=== PATIENT | female | born 1945 | race Native Hawaiian/Other Pacific Islander ===

== ENCOUNTER 2016-11-15 09:27 | Outpatient (CLI) | payer OTHER ==
[~2016-11-15 09:27] MED LIST: ALBUTEROL0.083 % IN; ANORO ELLIPTA 61 AER IN; ASPIR-8181 MG PO; CALCIUM CITRATE1 TA2 PO; CARAFATE1 GM PO; CELEXA20 MG PO; FLUT0.05 NAS; FURO20TA67 PO; LIPITOR20 MG PO; LISI5TAB10 PO; LORA10TA3 PO; METOPROLOL25 M1 OR; OMEPRAZOLE20 M1 OR; PERCOCET1 TA3 PO; POTA20TA4 PO; PROAIR HFA IN; SEROQUEL25 MG OR; SM IRON325 MG OR; TEMA15CA19 PO; TIZA4TAB5 PO; XANAX XR1 MG OR
== END 2016-11-15 19:27 | disposition home or self-care (01) ==
LOC: RAD 09:27
DX: M25.562 Pain in left knee (principal); M25.561 Pain in right knee

== ENCOUNTER 2017-01-16 09:13 | Outpatient (CLI) | payer OTHER ==
[2017-01-16 10:28] LABS: PLATELET COUNT 198 K/uL (152-353)
[2017-01-16 11:00] LABS: POTASSIUM 4.5 mmol/L (3.6-5.2)
== END 2017-01-16 10:45 | disposition home or self-care (01) ==
LOC: LABW 09:13
PROVIDERS: Family Medicine
DX: M54.5 Low back pain (principal); J44.9 Chronic obstructive pulmonary disease, unspecified; I10 Essential (primary) hypertension; I25.10 Atherosclerotic heart disease of native coronary artery without angina pectoris; J40 Bronchitis, not specified as acute or chronic; N39.0 Urinary tract infection, site not specified; D64.9 Anemia, unspecified
CPT/HCPCS: 36415; 80053; 80061; 81000; 82043; 82570; 82652; 82728; 83540; 83550; 83735; 84439; 84443; 84550; 85027; 87077; 87086; 87088; 87186

== ENCOUNTER 2017-01-29 13:03 | Outpatient (CLI) | payer OTHER | END 2017-01-29 14:05 | disposition home or self-care (01) | LOC: LAB 13:03 | DX: D64.89 Other specified anemias (principal) | CPT/HCPCS: 82607; 82746 ==

== ENCOUNTER 2017-07-21 09:03 | Outpatient (CLI) | payer OTHER ==
[2017-07-21 09:57] LABS: PLATELET COUNT 179 K/uL (152-353)
[2017-07-21 10:36] LABS: POTASSIUM 4.4 mmol/L (3.6-5.2)
== END 2017-07-21 19:18 | disposition home or self-care (01) ==
LOC: LABW 09:03
PROVIDERS: Family Medicine
DX: R10.84 Generalized abdominal pain (principal); M54.5 Low back pain; E55.9 Vitamin D deficiency, unspecified; I10 Essential (primary) hypertension
CPT/HCPCS: 36415; 74022; 80053; 80061; 82306; 84439; 84443; 85027; 87077; 87086; 87088; 87186

== ENCOUNTER 2017-08-21 12:30 | Outpatient (CLI) | payer OTHER | END 2017-08-21 19:21 | disposition home or self-care (01) | LOC: RAD 12:30 | DX: M17.12 Unilateral primary osteoarthritis, left knee (principal) ==

== ENCOUNTER 2018-03-23 11:15 | Outpatient (CLI) | payer OTHER | END 2018-03-23 19:20 | disposition home or self-care (01) | LOC: LABW 11:15 | DX: N39.0 Urinary tract infection, site not specified (principal) | CPT/HCPCS: 87077; 87086; 87088; 87185; 87186 ==

== ENCOUNTER 2018-04-02 10:44 | Outpatient (CLI) | payer OTHER | END 2018-04-02 19:41 | disposition home or self-care (01) | LOC: MAMMO 10:44 | DX: Z12.31 Encounter for screening mammogram for malignant neoplasm of breast (principal) ==

== ENCOUNTER 2018-04-21 08:42 | Outpatient (CLI) | payer OTHER ==
[2018-04-21 09:09] LABS: PLATELET COUNT 253 K/uL (152-353)
[2018-04-21 09:28] LABS: POTASSIUM 4.4 mmol/L (3.6-5.2)
== END 2018-04-21 21:29 | disposition home or self-care (01) ==
LOC: LABW 08:42
PROVIDERS: Family Medicine
DX: Z00.00 Encounter for general adult medical examination without abnormal findings (principal); Z00.01 Encounter for general adult medical examination with abnormal findings; E55.9 Vitamin D deficiency, unspecified; K21.9 Gastro-esophageal reflux disease without esophagitis; M79.605 Pain in left leg; Z13.6 Encounter for screening for cardiovascular disorders; R53.82 Chronic fatigue, unspecified; E11.9 Type 2 diabetes mellitus without complications
CPT/HCPCS: 36415; 80053; 80061; 80074; 81000; 82306; 83036; 83735; 84439; 84443; 84550; 85027

== ENCOUNTER 2018-04-27 08:58 | Outpatient (CLI) | payer OTHER | END 2018-04-27 19:42 | disposition home or self-care (01) | LOC: RAD 08:58 | DX: Z13.820 Encounter for screening for osteoporosis (principal) ==

== ENCOUNTER 2018-10-27 12:54 | Outpatient (CLI) | payer OTHER ==
[~2018-10-27] VITALS: Ht 165.1 cm; Wt 59.0 kg
[2018-10-27 13:05] VITALS: BP 110/59; TEMP 98.6
== END 2018-10-27 19:25 | disposition home or self-care (01) ==
LOC: INF 12:54 → RAD 12:54 → INF 19:25
DX: N39.0 Urinary tract infection, site not specified (principal); R10.84 Generalized abdominal pain
CPT/HCPCS: 96372; J0696

== ENCOUNTER 2018-10-28 12:34 | Outpatient (CLI) | payer OTHER ==
[~2018-10-28] VITALS: Ht 165.1 cm; Wt 59.0 kg
[2018-10-28 13:00] VITALS: BP 93/52; TEMP 97.9
== END 2018-10-28 20:07 | disposition home or self-care (01) ==
LOC: INF 12:34
DX: N39.0 Urinary tract infection, site not specified (principal)
CPT/HCPCS: 96372

== ENCOUNTER 2018-10-29 11:32 | Outpatient (CLI) | payer OTHER ==
[~2018-10-29] VITALS: Ht 167.6 cm; Wt 87.1 kg
[2018-10-29 12:30] VITALS: BP 107/66; TEMP 98.3
== END 2018-10-29 13:00 | disposition home or self-care (01) ==
LOC: INF 11:32
DX: N39.0 Urinary tract infection, site not specified (principal)
CPT/HCPCS: 87088; 96372

== ENCOUNTER 2019-01-05 11:19 | Outpatient (CLI) | payer OTHER ==
[~2019-01-05 11:19] MED LIST changes: -SEROQUEL25 MG OR; +SEROQUEL25 MG PO
[2019-01-05 12:09] LABS: POTASSIUM 4.9 mmol/L (3.6-5.2)
[2019-01-05 12:13] LABS: PLATELET COUNT 403 K/uL (152-353)
[2019-01-05] MEDS ORDERED: LISI10TA11 PO (23:53)
[2019-01-05] MEDS ORDERED: XANAX XR0.5 MG PO (23:55)
[2019-01-05] MEDS ORDERED: LIPITOR40 MG PO (23:56)
[2019-01-05] MEDS ORDERED: FURO40TA93 PO (23:58)
[2019-01-06] MEDS ORDERED: VITAMIN D32000 UNI1 PO (00:07)
[2019-01-06] MEDS ORDERED: BUPR150T PO (00:08)
[2019-01-06] MEDS ORDERED: PROMETHAZINE HY25 MG PO (00:09)
[2019-01-06] MEDS ORDERED: METF500T PO (00:10)
== END 2019-01-05 23:45 | disposition home or self-care (01) ==
LOC: RAD 11:19
PROVIDERS: Family Medicine
DX: D64.89 Other specified anemias (principal); R05 Cough; J40 Bronchitis, not specified as acute or chronic; J44.9 Chronic obstructive pulmonary disease, unspecified; D64.9 Anemia, unspecified; Z79.899 Other long term (current) drug therapy
CPT/HCPCS: 80053; 83540; 83550; 85027; 87088

== ENCOUNTER 2019-01-05 18:47 | Inpatient (IN) | payer OTHER ==
[~2019-01-05] VITALS: Ht 167.6 cm; Wt 83.0 kg
[2019-01-05 20:14] VITALS: BP 132/101; TEMP 97.7; Ht 167.6 cm; Wt 83.0 kg
[2019-01-05 20:33] LABS: PLATELET COUNT 389 K/uL (152-353)
[2019-01-05 21:04] VITALS: BP 132/101; TEMP 97.7
[2019-01-05] MEDS ORDERED: LISI10TA11 PO (23:53)
[2019-01-05] MEDS ORDERED: XANAX XR0.5 MG PO (23:55)
[2019-01-05] MEDS ORDERED: LIPITOR40 MG PO (23:56)
[2019-01-05] MEDS ORDERED: FURO40TA93 PO (23:58)
[2019-01-06] VITALS: BP 95/51; TEMP 97.6
[2019-01-06] MEDS ORDERED: VITAMIN D32000 UNI1 PO (00:07)
[2019-01-06] MEDS ORDERED: BUPR150T PO (00:08)
[2019-01-06] MEDS ORDERED: PROMETHAZINE HY25 MG PO (00:09)
[2019-01-06] MEDS ORDERED: METF500T PO (00:10)
[2019-01-06 04:00] VITALS: BP 115/58; TEMP 97.9
[2019-01-06 08:00] VITALS: BP 131/52; TEMP 98.1
[2019-01-06 12:00] VITALS: BP 144/66; TEMP 97.5
[2019-01-06 13:13] LABS: PLATELET COUNT 342 K/uL (152-353)
[2019-01-06 16:00] VITALS: BP 114/59; TEMP 98.7
[2019-01-06 20:00] VITALS: BP 115/59; TEMP 98.3
[2019-01-07] VITALS: BP 102/75; TEMP 98.4
[2019-01-07 04:00] VITALS: BP 111/49; TEMP 98.3
[2019-01-07 08:00] VITALS: BP 115/53; TEMP 97.9
[2019-01-07 12:00] VITALS: BP 130/65; TEMP 98.1
== END 2019-01-07 16:20 | disposition home or self-care (01) | DRG 190 ==
LOC: MED/SURG 18:47
PROVIDERS: ADMIT Family Medicine
DX: J44.0 Chronic obstructive pulmonary disease with (acute) lower respiratory infection (principal); J18.8 Other pneumonia, unspecified organism; Z72.0 Tobacco use; D64.89 Other specified anemias; I10 Essential (primary) hypertension; I25.10 Atherosclerotic heart disease of native coronary artery without angina pectoris; M79.7 Fibromyalgia; N28.89 Other specified disorders of kidney and ureter
CPT/HCPCS: 36415; 80053; 85027; 87040; 93005; 94640; 94644; 94645; 94664; 94668; 94760; J1956; J1650; Q9963

== ENCOUNTER 2019-04-02 08:29 | Outpatient (CLI) | payer OTHER ==
[~2019-04-02 08:29] MED LIST changes: +BUPR150T PO; +FURO40TA93 PO; +LIPITOR40 MG PO; +LISI10TA11 PO; +METF500T PO; +PROMETHAZINE HY25 MG PO; +VITAMIN D32000 UNI1 PO; +XANAX XR0.5 MG PO
== END 2019-04-02 21:52 | disposition home or self-care (01) ==
LOC: LABW 08:29
PROVIDERS: Nurse Practitioner Adult Health
DX: I25.10 Atherosclerotic heart disease of native coronary artery without angina pectoris (principal); E78.2 Mixed hyperlipidemia; Z79.899 Other long term (current) drug therapy
CPT/HCPCS: 36415; 80061; 80076

== ENCOUNTER 2019-06-22 09:18 | Outpatient (CLI) | payer OTHER | END 2019-06-22 19:42 | disposition home or self-care (01) | LOC: RAD 09:18 | DX: M54.89 Other dorsalgia (principal); M54.30 Sciatica, unspecified side; M79.7 Fibromyalgia; G89.4 Chronic pain syndrome; F41.8 Other specified anxiety disorders; G47.09 Other insomnia; E11.9 Type 2 diabetes mellitus without complications; I10 Essential (primary) hypertension; E78.00 Pure hypercholesterolemia, unspecified; I73.89 Other specified peripheral vascular diseases ==

== ENCOUNTER 2019-11-22 12:19 | Outpatient (CLI) | payer OTHER | END 2019-11-22 22:06 | disposition home or self-care (01) | LOC: LAB 12:19 | DX: G89.4 Chronic pain syndrome (principal); F41.9 Anxiety disorder, unspecified; R05 Cough; J44.9 Chronic obstructive pulmonary disease, unspecified | CPT/HCPCS: 87635; U0002 ==

== ENCOUNTER 2020-08-17 09:32 | Outpatient (CLI) | payer OTHER | END 2020-08-17 21:44 | disposition home or self-care (01) | LOC: RAD 09:32 | PROVIDERS: ATTEND Family Medicine | DX: M54.89 Other dorsalgia (principal) ==

== ENCOUNTER 2020-08-31 08:15 | Outpatient (CLI) | payer OTHER | END 2020-08-31 19:30 | disposition home or self-care (01) | LOC: LABW 08:15 | PROVIDERS: ATTEND Nurse Practitioner | DX: E78.49 Other hyperlipidemia (principal); I25.10 Atherosclerotic heart disease of native coronary artery without angina pectoris; Z79.899 Other long term (current) drug therapy | CPT/HCPCS: 36415; 80061; 80076 ==

== ENCOUNTER 2021-01-01 10:28 | Observation (INO) | payer OTHER ==
[~2021-01-01] VITALS: Ht 170.2 cm; Wt 73.2 kg
[2021-01-01 12:00] LABS: PLATELET COUNT 240 K/uL (152-353)
[2021-01-01 12:20] LABS: POTASSIUM 5.1 mmol/L (3.6-5.2); SODIUM 136 mmol/L (136-145)
[2021-01-01 14:42] LABS: PARTIAL THROMBOPLASTIN TIME 26.5 SECONDS (24.5-33.6)
[2021-01-01] MEDS ORDERED: ESCITALOPRAM20 MG PO (16:48)
[2021-01-01] MEDS ORDERED: GRALISE600 MG PO (16:49)
[2021-01-01] MEDS ORDERED: SERT50TA PO (16:50)
[2021-01-01 17:36] VITALS: BP 104/68; TEMP 98.7; Ht 170.2 cm; Wt 73.2 kg
[2021-01-01 20:00] VITALS: BP 146/65; TEMP 98.2
[2021-01-01] MEDS ORDERED: ALPR0.5T24 PO (21:27)
[2021-01-02] VITALS: BP 123/70; TEMP 98.4
[2021-01-02 04:00] VITALS: BP 166/84; TEMP 99.2
[2021-01-02 06:03] LABS: PLATELET COUNT 223 K/uL (152-353)
[2021-01-02 06:25] LABS: POTASSIUM 4.5 mmol/L (3.6-5.2)
[2021-01-02 08:00] VITALS: BP 161/75; TEMP 98.1
[2021-01-02 12:00] VITALS: BP 152/77; TEMP 98.1
== END 2021-01-02 15:10 | disposition home or self-care (01) ==
LOC: MED/SURG 10:28
PROVIDERS: ADMIT Family Medicine; ATTEND Family Medicine
DX: R55 Syncope and collapse (principal); E86.0 Dehydration; I25.10 Atherosclerotic heart disease of native coronary artery without angina pectoris; I10 Essential (primary) hypertension; I25.2 Old myocardial infarction; E78.49 Other hyperlipidemia; J44.9 Chronic obstructive pulmonary disease, unspecified; K21.9 Gastro-esophageal reflux disease without esophagitis; M79.7 Fibromyalgia; E11.9 Type 2 diabetes mellitus without complications; D50.8 Other iron deficiency anemias; A08.8 Other specified intestinal infections; R19.7 Diarrhea, unspecified; R51.9 Headache, unspecified
CPT/HCPCS: 80053; 81000; 82272; 82550; 82728; 82948; 83540; 83550; 84439; 84443; 84484; 85027; 85610; 85730; 87015; 87045; 87324; 87328; 87329; 87449; 87635; 87899; 93005; 94664; 94760; 96361; 96372; 96374; 99220; G0378; G0379; J1650; J3490; U0003

== ENCOUNTER 2021-02-06 07:39 | Outpatient (CLI) | payer OTHER ==
[~2021-02-06 07:39] MED LIST changes: +ALPR0.5T24 PO; +ESCITALOPRAM20 MG PO; +GRALISE600 MG PO; +SERT50TA PO
== END 2021-02-06 19:26 | disposition home or self-care (01) ==
LOC: LAB 07:39
PROVIDERS: ATTEND Family Medicine
DX: U07.1 COVID-19 (principal); Z20.822 Contact with and (suspected) exposure to COVID-19
CPT/HCPCS: 87635; G2023; U0003

== ENCOUNTER 2021-02-22 10:22 | Observation (INO) | payer OTHER ==
[~2021-02-22] VITALS: Ht 170.2 cm; Wt 68.2 kg
[2021-02-22 10:24] VITALS: BP 130/85; TEMP 98
[2021-02-22 10:57] LABS: PLATELET COUNT 247 K/uL (152-353)
[2021-02-22 11:07] LABS: POTASSIUM 3.7 mmol/L (3.6-5.2)
[2021-02-22] MEDS ORDERED: LISI10TA11 PO (15:21)
[2021-02-22] MEDS ORDERED: FORTAMET500 MG PO ×2 (15:22→15:23)
[2021-02-22] MEDS ORDERED: LIPITOR40 MG PO (15:22)
[2021-02-22] MEDS ORDERED: POTASSIUM CHLO20 ME1 PO (15:25)
[2021-02-22] MEDS ORDERED: PROMETHAZINE HY25 MG PO (15:26)
[2021-02-22] MEDS ORDERED: FEROSUL325 MG PO (15:27)
[2021-02-22] MEDS ORDERED: CARAFATE1 GM PO (15:27)
[2021-02-22] MEDS ORDERED: SERT100T PO (15:28)
[2021-02-22] MEDS ORDERED: METO-837 PO (15:28)
[2021-02-22] MEDS ORDERED: FURO40TA93 PO (15:29)
[2021-02-22] MEDS ORDERED: GRALISE600 MG PO (15:30)
[2021-02-22] MEDS ORDERED: HYDROXYZINE HYD25 MG PO (15:30)
[2021-02-22] MEDS ORDERED: ESCITALOPRAM20 MG PO (15:31)
[2021-02-22 15:56] VITALS: BP 120/65; TEMP 97.6; Ht 170.2 cm; Wt 68.2 kg
--- NOTE | 2021-02-22 19:41 | NUR ---
02/22/21 PT TO ROOM 1112 DX NSTEMI,COVID POS.PT ORIENTED TO ROOM ASSESSMENT COMPLETED.PT HAS BRUSING TO ARMS AND LEGS ALSO LARGE BRUSIE TO LEFT INNER THIGH WITH HARDENED ELEVATED AREA IN CENTER OF BRUISE. NOTIFIED NO NEW ORDER AT THIS TIME.CC
[2021-02-22 19:56] VITALS: BP 124/74; TEMP 98.5
--- NOTE | 2021-02-22 21:15 | NUR ---
PM MEDS GIVEN AT THIS TIME. PT TOLERATED WELL. PT. REQUESTED RESTERIL TO BE GIVEN LATER ON AND REQUEST GRANTED BY OPHTHALMIC PHOTOGRAPHER. NO S/S OF ACUTE DISTRESS NOTED OR EXPRESSD BY PT. PT ON 2L N/C SATTING 99%. PULMICORT AND COMBIVENT UTILIZIED AT THIS TIME. PT ALSO COMPLIANT WITH INCENTIVE SPIROMETER. WILL CONTINUE TO MONITOR FOR ANY ACUTE CHANGES AT THIS TIME.
[2021-02-23 00:12] VITALS: BP 117/66; TEMP 98.7
[2021-02-23 04:06] VITALS: BP 105/63; TEMP 98.4
[2021-02-23 05:21] LABS: PLATELET COUNT 226 K/uL (152-353)
--- NOTE | 2021-02-23 06:22 | NUR ---
Postive for RD to complete an Assessment: Admitting Diagnosis of COID, Pneumonia and a past medical history of COPD, asthma, GERD,HTN, IN, Dehydration, Diarrhea, tobacco abue, heaby 1 ppdCAD, SOB, DM II/2, depression, anxiety chronic pain syndrome, syncope and collapseimpaired smell and taste, Non productive cough and is receiving Zn, KCl, Lasix, FESO4, Vitamin C, ASA and RD reviewed whole chart with all medicaitons and labs as well and labs reveal: RBC, Hgb, Hct, ALT, TP, Albumin and troponin all depressed and MCV, MCH, BUN and glucose all elevated. 5'7" at 149.6 lbs. and BMI at 23.49 and is wnl's and is 111% of IBW and IBW = 135+/-10% (121 to 149 lbs.) and kcal needs x 25 = 1500, x 30 = 1800, x 35 = 2200, x 40 = 2500, protein x .8 to 1.5 = 49 to 92 grams per day and fluids = x 25 to 40 = 1500 to 2500 ml/cc per day. On [address] Recommendaitons: 1-Monitor abnormal labs 2-PT to work with the patient 3-OT to work with the paitnet 4-Suggest NCS or RCS and add high fiber 5-Add a Diabetic Supplement as Glucerna 1.5 with meals 6-Add a MVI 7- Add an appetite stimulant if not eating 75% of meals 8-Add B complex with B1/thiamin, B2/riboflavin, and B3/Niacin 9-Increase fluids as tolerated and make sure hydrated, may want to add an extra glass of fluids of choice with the each tray 10-Stress HBV protein and make sure eating eggs and meats and maybe add a boiled egg with lunch or dinner if will eat, needs extra protien with meals 11-May want to add Low Fat and Low Soidum to diet plan 12-Add an appetite stimulant if not eating 75% of meals RD available as needed.
[2021-02-23 08:00] VITALS: BP 113/65; TEMP 97.5
--- NOTE | 2021-02-23 08:16 | NUR ---
EKG COMPLETED AND PLACED ON PT CHART.
--- NOTE | 2021-02-23 09:24 | NUR ---
ASSESSING PT, SLIGHT WHEEZING AND FINE CRACKLES AUSCULTATED IN THE LOWER LOBES OF THE LUNGS. PT STATES THAT SHE HAS A COUGH BUT NOTHING IS COMING UP. PT SWALLOWING MORNING MEDICATIONS WITHOUT DIFFICULTIES. PT WAS EDUCATED ON THE PROPER USE OF INHALERS AT BEDSIDE AND EDUCATED TO RINSE OUT MOUTH AFTER INHALER USE TO PREVENT THRUSH. UR CAME TO TRADE MARK ATTORNEY TO DISCUSS COVID TEST, IT APPEARS THAT PT WAS NOT COVID TESTED WHILE IN THE ER BUT ON A PRIOR DATE AT PCP'S OFFICE. UR HAS SPOKE WITH PHYSICIAN. AWAITING FURTHER ORDERS.
--- NOTE | 2021-02-23 10:30 | NUR ---
RESULTS OF RAPID COVID TESTING CAME BACK "DETECTED". WILL CONTINUE TO MAINTAIN STRICT PRECAUTIONS.
--- NOTE | 2021-02-23 11:27 | NUR ---
PT HAS RECEIVED EDUCATION REGUARDING REMDESIVIR INFUSION BY FAMILY [employer] REGISTRAR. PT HAS SIGNED CONSENT FORM AND CONSENT FORM IS BEING PLACED ON THE CHART.
[2021-02-23 12:00] VITALS: BP 90/55; TEMP 97.6
--- NOTE | 2021-02-23 12:21 | NUR ---
PHYSICAL THERAPY JUST FINISHED WITH PT. PT'S O2 SAT REMAINED OVER 90% DURING THE WHOLE PHYSICAL THERAPY SESSION. PT SHOWED PHYSICAL THERAPIST AN AREA ON THE UPPER LEFT THIGH WHERE SHE HAD PREVIOUSLY FALLEN. AREA IS BRUISED AND MUSCLE APPEARS TO BE BULGING. INTERNATIONAL TAX MANAGER WILL LET PHYSICIAN KNOW ABOUT LEFT UPPER THIGH.
--- NOTE | 2021-02-23 12:29 | NUR ---
PHYSICIAN WAS MADE AREA OF HEMATOMA TO LEFT UPPER LEG.
--- NOTE | 2021-02-23 12:48 | NUR ---
WHILE BRAND MARKETING SPECIALIST WAS ASSESSING THE HEMATOMA PT SAID THAT IT OCCURRED ONE NIGHT ABOUT A WEEK AGO IN THE MIDDLE OF THE NIGHT WHEN SHE GOT UP TO GO USE THE BATHROOM AND LOST HER BALANCE. WHEN SHE FELL SHE HIT HER UPPER THIGH ON THE PORCELIN AREA OF THE TOILET. PT SHOWED BRAND MARKETING SPECIALIST THAT SHE WEARS A LIFE ALERT WHILE SHE IS AT HOME BECAUSE SHE LIVES ALONE.
[2021-02-23 16:00] VITALS: BP 91/57; TEMP 98.2
[2021-02-23 20:00] VITALS: BP 90/54; TEMP 98.3
[2021-02-24 00:07] VITALS: BP 95/45; TEMP 98.5
--- NOTE | 2021-02-24 01:41 | NUR ---
PATIENT RESTING QUIETLY WITH EYES CLOSED, NO ACUTE DISTRESS NOTED. CALL LIGHT WITHIN REACH. WILL CONTINUE TO MONITOR.
[2021-02-24 04:00] VITALS: BP 119/65; TEMP 97.5
[2021-02-24 05:11] LABS: PLATELET COUNT 290 K/uL (152-353)
[2021-02-24 05:35] LABS: POTASSIUM 4.2 mmol/L (3.6-5.2)
[2021-02-24 08:00] VITALS: BP 115/70; TEMP 97.9
[2021-02-24 12:00] VITALS: BP 111/64; TEMP 98.1
[2021-02-24 16:00] VITALS: BP 98/50; TEMP 97.7
[2021-02-24 20:15] VITALS: BP 109/49; TEMP 98.6
[2021-02-25 00:09] VITALS: BP 103/59; TEMP 98.7
[2021-02-25 04:00] VITALS: BP 110/59; TEMP 98.4
[2021-02-25 04:33] LABS: PLATELET COUNT 266 K/uL (152-353)
[2021-02-25 04:59] LABS: POTASSIUM 4.4 mmol/L (3.6-5.2)
[2021-02-25 08:00] VITALS: BP 112/58; TEMP 97.5
[2021-02-25 12:00] VITALS: BP 102/63; TEMP 97.9
[2021-02-25 16:00] VITALS: BP 93/61; TEMP 98.1
--- NOTE | 2021-02-25 17:44 | NUR ---
PT DISCHARGED HOME. SHE VERBALIZED UNDERSTNADING OF DISCHARGE INSTRUCTIONS. SHE TOOK HER HOME MEDS BACK HOME WITH UPON DISCHARGE. SHE WAS DISCHARGED HOME VIA WC ACCOMPANIED BY HER SON WHO PICKED HER UP AND IS DRIVING HER HOME. SHE IS STABLE AT THE TIME OF DISCHARGE.
== END 2021-02-25 17:35 | disposition home or self-care (01) ==
LOC: ED 10:22 → MED/SURG 14:20
PROVIDERS: Emergency Medicine; ADMIT Internal Medicine Endocrinology, Diabetes & Metabolism; ATTEND Internal Medicine Endocrinology, Diabetes & Metabolism
DX: U07.1 COVID-19 (principal); J96.01 Acute respiratory failure with hypoxia; I26.99 Other pulmonary embolism without acute cor pulmonale; I21.4 Non-ST elevation (NSTEMI) myocardial infarction; J12.82 Pneumonia due to coronavirus disease 2019; Z72.0 Tobacco use; G89.4 Chronic pain syndrome; K21.9 Gastro-esophageal reflux disease without esophagitis; I10 Essential (primary) hypertension; J44.0 Chronic obstructive pulmonary disease with (acute) lower respiratory infection; E11.9 Type 2 diabetes mellitus without complications; M79.7 Fibromyalgia; I25.10 Atherosclerotic heart disease of native coronary artery without angina pectoris
CPT/HCPCS: 36415; 80048; 80053; 82948; 83880; 84484; 85027; 85379; 87635; 93005; 94760; 96365; 96372; 96374; 96375; 99220; 99284; G0378; J1100; J1940; J1956; U0003

== ENCOUNTER → 2021-05-21 | Outpatient (CLI) | payer OTHER ==
[~2021-05-21] MED LIST changes: +FEROSUL325 MG PO; +FORTAMET500 MG PO; +HYDROXYZINE HYD25 MG PO; +METO-837 PO; +POTASSIUM CHLO20 ME1 PO; +SERT100T PO
== END ==
LOC: LABW 08:32
PROVIDERS: ATTEND Nurse Practitioner
DX: I25.10 Atherosclerotic heart disease of native coronary artery without angina pectoris (principal); Z79.899 Other long term (current) drug therapy
CPT/HCPCS: 36415; 80061; 80076

== ENCOUNTER 2021-06-04 09:13 | Outpatient (CLI) | payer OTHER ==
[2021-06-04 10:06] LABS: PLATELET COUNT 221 K/uL (152-353)
[2021-06-04 10:14] LABS: POTASSIUM 4.7 mmol/L (3.6-5.2)
== END 2021-06-04 18:52 | disposition home or self-care (01) ==
LOC: LABW 09:13
PROVIDERS: ATTEND Specialist
DX: Z01.810 Encounter for preprocedural cardiovascular examination (principal); R94.39 Abnormal result of other cardiovascular function study
CPT/HCPCS: 80048; 85027

== ENCOUNTER 2021-06-07 11:16 | Outpatient (CLI) | payer OTHER ==
[2021-06-07 11:59] LABS: POTASSIUM 4.6 mmol/L (3.6-5.2)
== END 2021-06-07 18:46 | disposition home or self-care (01) ==
LOC: LABW 11:16
PROVIDERS: ATTEND Specialist
DX: R35.89 Other polyuria (principal); Z79.899 Other long term (current) drug therapy
CPT/HCPCS: 36415; 80048

== ENCOUNTER 2021-08-14 12:22 | Outpatient (CLI) | payer OTHER | END 2021-08-14 18:59 | disposition home or self-care (01) | LOC: RAD 12:22 | PROVIDERS: ATTEND Family Medicine | DX: M54.89 Other dorsalgia (principal); M25.512 Pain in left shoulder ==

== ENCOUNTER 2021-11-13 10:51 | Outpatient (CLI) | payer OTHER | END 2021-11-13 18:51 | disposition home or self-care (01) | LOC: RAD 10:51 | PROVIDERS: ATTEND Family Medicine | DX: R05.8 Other specified cough (principal); J44.9 Chronic obstructive pulmonary disease, unspecified ==

== ENCOUNTER 2021-11-20 13:56 | Outpatient (CLI) | payer OTHER | END 2021-11-20 19:00 | disposition home or self-care (01) | LOC: LABW 13:56 | PROVIDERS: ATTEND Nurse Practitioner | DX: E78.49 Other hyperlipidemia (principal); I25.10 Atherosclerotic heart disease of native coronary artery without angina pectoris; Z79.899 Other long term (current) drug therapy | CPT/HCPCS: 36415; 80061; 80076 ==

== ENCOUNTER 2021-11-25 19:50 | Inpatient (IN) | payer OTHER ==
[~2021-11-25] VITALS: Ht 170.2 cm; Wt 78.5 kg
[~2021-11-25 19:50] MED LIST changes: -PROAIR HFA IN; +PROAIR HFA108 MCG/AC INH
[2021-11-25 20:09] VITALS: BP 116/71; TEMP 98.3
[2021-11-25 20:42] LABS: PLATELET COUNT 179 K/uL (152-353)
[2021-11-25 20:47] LABS: POTASSIUM 4.6 mmol/L (3.6-5.2)
[2021-11-25 21:42] LABS: PARTIAL THROMBOPLASTIN TIME 31.4 SECONDS (24.5-33.6)
[2021-11-25 22:15] VITALS: BP 117/73; TEMP 98.7
[2021-11-25 22:40] VITALS: BP 120/53; TEMP 98
[2021-11-25 23:33] VITALS: BP 120/53; TEMP 98; Ht 170.2 cm; Wt 78.5 kg
[2021-11-26] VITALS: BP 126/59; TEMP 98.1
[2021-11-26 04:09] VITALS: BP 129/66; TEMP 97.1
[2021-11-26 08:00] VITALS: BP 115/58; TEMP 98
[2021-11-26 08:35] LABS: PLATELET COUNT 163 K/uL (152-353)
[2021-11-26 08:58] LABS: POTASSIUM 4.5 mmol/L (3.6-5.2)
[2021-11-26 12:26] VITALS: BP 150/78; TEMP 97.9
[2021-11-26 16:00] VITALS: BP 133/68; TEMP 98.6
[2021-11-26] MEDS ORDERED: VRAYLAR3 MG PO (18:02)
[2021-11-26] MEDS ORDERED: OXYCODONE HYDRO20 M1 PO (18:03)
[2021-11-26] MEDS ORDERED: MAGNESIUM OXID400 M3 PO (18:06)
[2021-11-26] MEDS ORDERED: XARELTO20 MG PO (18:13)
[2021-11-26] MEDS ORDERED: TRELEGY ELLIPTA1 AER INH (18:16)
[2021-11-26] MEDS ORDERED: VITAMIN D32000 UNI1 PO (18:19)
[2021-11-26 20:00] VITALS: BP 108/58; TEMP 99
[2021-11-27] VITALS: BP 109/55; TEMP 98.9
[2021-11-27 04:00] VITALS: BP 99/49; TEMP 98.9
[2021-11-27 08:00] VITALS: BP 130/71; TEMP 97.9
[2021-11-27 09:32] LABS: PLATELET COUNT 143 K/uL (152-353)
[2021-11-27 09:51] LABS: POTASSIUM 4.2 mmol/L (3.6-5.2)
[2021-11-27 12:00] VITALS: BP 138/73; TEMP 98.1
[2021-11-27 16:17] VITALS: BP 151/85; TEMP 97.9
[2021-11-27 20:00] VITALS: BP 161/90; TEMP 98.7
[2021-11-28] VITALS: BP 129/75; TEMP 97.7
[2021-11-28 01:57] LABS: PLATELET COUNT 145 K/uL (152-353)
[2021-11-28 04:00] VITALS: BP 133/69; TEMP 98
[2021-11-28 07:30] VITALS: BP 183/99; TEMP 97.5
[2021-11-28 12:00] VITALS: BP 154/89; TEMP 98.4
[2021-11-28 16:00] VITALS: BP 155/99; TEMP 97.7
[2021-11-28 20:00] VITALS: BP 173/109; TEMP 97.6
[2021-11-29] VITALS: BP 154/106; TEMP 97.6
[2021-11-29 03:48] LABS: PLATELET COUNT 217 K/uL (152-353)
[2021-11-29 04:00] VITALS: BP 151/37; TEMP 98.7
[2021-11-29 04:00] LABS: POTASSIUM 3.6 mmol/L (3.6-5.2)
[2021-11-29 08:00] VITALS: BP 145/94; TEMP 97.7
[2021-11-29 12:00] VITALS: BP 132/82; TEMP 97.7
== END 2021-11-29 15:38 | disposition short-term general hospital (02) | DRG 557 ==
LOC: ED 19:50 → MED/SURG 21:45
PROVIDERS: ADMIT Hospitalist; ATTEND Family Medicine
DX: M62.82 Rhabdomyolysis (principal); J18.8 Other pneumonia, unspecified organism; J44.0 Chronic obstructive pulmonary disease with (acute) lower respiratory infection; F31.89 Other bipolar disorder; E86.0 Dehydration; I25.10 Atherosclerotic heart disease of native coronary artery without angina pectoris; I25.2 Old myocardial infarction; E78.49 Other hyperlipidemia; I11.0 Hypertensive heart disease with heart failure; I50.9 Heart failure, unspecified; Z99.81 Dependence on supplemental oxygen; D64.89 Other specified anemias; K21.9 Gastro-esophageal reflux disease without esophagitis; M79.7 Fibromyalgia; F41.8 Other specified anxiety disorders; M15.8 Other polyosteoarthritis; F17.210 Nicotine dependence, cigarettes, uncomplicated; E83.42 Hypomagnesemia; E87.8 Other disorders of electrolyte and fluid balance, not elsewhere classified; R00.0 Tachycardia, unspecified; E11.65 Type 2 diabetes mellitus with hyperglycemia
CPT/HCPCS: 36415; 36600; 80053; 80320; 81002; 81015; 82550; 82728; 82805; 83540; 83550; 83735; 83880; 84100; 84484; 85027; 85610; 85730; 87635; 93005; 94664; 94760; 96360; 96374; 99284; J1650; J1815; J1940; J2270; J2405; J2920; J2930; J3490; U0003

== ENCOUNTER 2022-03-28 08:47 | Outpatient (CLI) | payer OTHER ==
[~2022-03-28 08:47] MED LIST changes: +MAGNESIUM OXID400 M3 PO; +OXYCODONE HYDRO20 M1 PO; +TRELEGY ELLIPTA1 AER INH; +VRAYLAR3 MG PO; +XARELTO20 MG PO
== END 2022-03-28 19:11 | disposition home or self-care (01) ==
LOC: MAMMO 08:47
PROVIDERS: ATTEND Family Medicine
DX: Z12.31 Encounter for screening mammogram for malignant neoplasm of breast (principal); F17.210 Nicotine dependence, cigarettes, uncomplicated; J44.9 Chronic obstructive pulmonary disease, unspecified

== ENCOUNTER 2022-05-06 22:53 | Emergency (ER) | payer OTHER ==
[~2022-05-06] VITALS: Ht 170.2 cm; Wt 78.5 kg
[2022-05-07 00:20] LABS: POTASSIUM 3.5 mmol/L (3.6-5.2)
[2022-05-07 00:55] LABS: PLATELET COUNT 224 K/uL (152-353)
[2022-05-07 03:05] VITALS: BP 142/68; TEMP 98.8
== END 2022-05-07 03:05 | disposition home or self-care (01) ==
LOC: ED 22:53
PROVIDERS: Emergency Medicine Emergency Medical Services
DX: J44.1 Chronic obstructive pulmonary disease with (acute) exacerbation (principal)
CPT/HCPCS: 36415; 80048; 83735; 84484; 85027; 93005; 94664; 96360; 96361; 96365; 96375; 99284; J0696; J2405; J2930

== ENCOUNTER 2022-11-28 07:35 | Outpatient (CLI) | payer OTHER | END 2022-11-28 18:57 | disposition home or self-care (01) | LOC: US 07:35 | PROVIDERS: ATTEND Family Medicine | DX: R09.89 Other specified symptoms and signs involving the circulatory and respiratory systems (principal); I25.10 Atherosclerotic heart disease of native coronary artery without angina pectoris; F17.210 Nicotine dependence, cigarettes, uncomplicated; Z13.6 Encounter for screening for cardiovascular disorders ==

== ENCOUNTER 2023-07-22 09:47 | Outpatient (CLI) | payer OTHER | END 2023-07-22 19:06 | disposition home or self-care (01) | LOC: RESP 09:47 | PROVIDERS: ATTEND Specialist | DX: I25.10 Atherosclerotic heart disease of native coronary artery without angina pectoris (principal); I34.0 Nonrheumatic mitral (valve) insufficiency; I35.1 Nonrheumatic aortic (valve) insufficiency; I36.1 Nonrheumatic tricuspid (valve) insufficiency ==